=== PATIENT | female | born 1985 | race Two or more races ===

== ENCOUNTER → 2023-05-04 | Outpatient (CLI) | payer MEDICAID, SELFPAY ==
[2023-05-06 11:09] LABS: HPV APTIMA, High Risk Negative (Negative)
== END | disposition home or self-care (01) ==
LOC: LABSPEC 10:40
PROVIDERS: Visit Provider Nurse Practitioner Women's Health
DX: Z12.4 Encounter for screening for malignant neoplasm of cervix (principal)
CPT/HCPCS: 87624; 88175; G0145